=== PATIENT | female | born 1985 | race Caucasian/White ===

== ENCOUNTER 2023-05-07 15:07 | Emergency (ER) | payer OTHER ==
[~2023-05-07] VITALS: Ht 157.5 cm; Wt 54.4 kg
[2023-05-07 17:16] LABS: HEMOGLOBIN 13.6 g/dL (12.0-15.00); MEAN CELL VOLUME 82.7 fL (80.00-100.00); MEAN CORPUSCULAR HEMOGLOBIN 26.8 pg (27.00-32.0); MEAN CORPUSCULAR HGB CONC 32.3 g/dl (32.0-36.0); PLATELET COUNT 211 K/uL (150-450); RED BLOOD COUNT 5.08 M/uL (4.00-6.00); RED CELL DISTRIBUTION WIDTH 12.4 % (11.5-14.5)
[2023-05-07 17:30] LABS: CALCIUM 8.8 mg/dL (8.5-10.1); CREATININE SERUM 0.66 mg/dL (0.55-1.02); GFR 100.23; POTASSIUM 3.62 mEq/L (3.5-5.1)
[2023-05-07 18:12] LABS: PH,URINE 5.5 (5.0-8.0); URINE APPEARANCE Clear; URINE BILIRRUBIN Negative (NEGATIVE); URINE BLOOD Negative; URINE COLOR Yellow; URINE GLUCOSE Negative (NEGATIVE); URINE LEUKOCYTE Trace; URINE NITRATE Negative; URINE PROTEIN Trace (NEGATIVE); URINE UROBILINOGEN 0.2 E.U./dl
[2023-05-07 18:16] LABS: URINE BACTERIA 755.8 uL (0.0-1933); URINE EPITHELIAL CELLS 31.6 uL (0.0-38.8); URINE RBC 5.6 uL (0.0-20.8)
== END 2023-05-07 20:55 | disposition home or self-care (01) ==
LOC: ER 15:07
PROVIDERS: Emergency Medicine
DX: K52.89 Other specified noninfective gastroenteritis and colitis (principal)

== ENCOUNTER 2023-07-19 19:00 | Emergency (ER) | payer OTHER ==
[~2023-07-19] VITALS: Ht 157.5 cm; Wt 61.2 kg
[2023-07-19 22:15] LABS: PH,URINE 5.5 (5.0-8.0); URINE APPEARANCE Cloudy; URINE BILIRRUBIN Negative (NEGATIVE); URINE BLOOD Small; URINE COLOR Yellow; URINE GLUCOSE Negative (NEGATIVE); URINE LEUKOCYTE Small; URINE NITRATE Negative; URINE PROTEIN Negative (NEGATIVE); URINE UROBILINOGEN 0.2 E.U./dl
[2023-07-19 22:16] LABS: URINE EPITHELIAL CELLS 71.8 uL (0.0-38.8); URINE RBC 9.6 uL (0.0-20.8); URINE WBC 105.1 uL (0.0-23.2)
[2023-07-19 22:36] LABS: URINE BACTERIA > 9821.5 uL (0.0-1933)
[2023-07-19 23:23] LABS: MEAN CELL VOLUME 81.6 fL (80.00-100.00); MEAN CORPUSCULAR HEMOGLOBIN 27.1 pg (27.00-32.0); MEAN CORPUSCULAR HGB CONC 33.2 g/dl (32.0-36.0); PLATELET COUNT 248 K/uL (150-450); RED BLOOD COUNT 4.78 M/uL (4.00-6.00); RED CELL DISTRIBUTION WIDTH 13.2 % (11.5-14.5)
[2023-07-19 23:50] LABS: ANION GAP 8 (10.0-20.0); BLOOD UREA NITROGEN 9 mg/dL (7-18); BUN CREA RATIO 12 (7.0-25.0); CALCIUM 9.3 mg/dL (8.5-10.1); CARBON DIOXIDE 30 mEq/L (21-32); CHLORIDE 102 mmol/L (98-107); CREATININE SERUM 0.78 mg/dL (0.55-1.02); GFR 82.65; GLUCOSE FASTING 153 mg/dL (65-100); LIPASE 33 U/L (13-75); OSMOLALITY SERUM 276 MOSM/KG (275-295); POTASSIUM 3.36 mEq/L (3.5-5.1); SODIUM 137 mmol/L (136-145)
[2023-07-19 23:51] LABS: HCG QUANTITATIVE < 1 mUI/mL (1-3)
[2023-07-20] MEDS ORDERED: KETO10TA2 PO (03:32)
[2023-07-20] MEDS ORDERED: CEPHALEXIN500 MG PO (03:34)
== END 2023-07-20 03:41 | disposition home or self-care (01) ==
LOC: ER 19:01
PROVIDERS: Emergency Medicine
DX: N39.0 Urinary tract infection, site not specified (principal); N83.202 Unspecified ovarian cyst, left side; E16.2 Hypoglycemia, unspecified